=== PATIENT | female | born 1960 | race Caucasian/White ===

== ENCOUNTER → 2018-12-12 11:15 | Outpatient (CLI) | payer OTHER, SELFPAY ==
[2013-07-17 09:05] VITALS: BMI 33.1
[2018-12-15 13:35] LABS: HPV Reflexed? NOT INDICATED
== END ==
PROVIDERS: Visit Provider Obstetrics & Gynecology
DX: Z12.4 Encounter for screening for malignant neoplasm of cervix (principal)
CPT/HCPCS: 87624; 88175; G0145

== ENCOUNTER → 2019-03-14 14:21 | Outpatient (CLI) | payer OTHER, SELFPAY ==
[2013-07-17 09:05] VITALS: BMI 33.1
== END ==
PROVIDERS: Visit Provider Obstetrics & Gynecology
DX: N39.0 Urinary tract infection, site not specified (principal)
CPT/HCPCS: 87077; 87086; 87088; 87186